=== PATIENT | male | born 1970 | race Caucasian/White ===

== ENCOUNTER 2023-03-16 21:16 | Emergency (ER) | payer SELFPAY ==
[~2023-03-16] VITALS: Ht 177.8 cm; Wt 114.8 kg
--- NOTE | 2023-03-16 21:45 | NUR ---
BIBWIFE FOR ANXIETY, "BEEN STRESSED OUT LATELY"
[2023-03-16] MEDS ORDERED: LORAZEPAM 1 MG TABLET PO ONE (22:30)
--- NOTE | 2023-03-16 22:36 | NUR ---
TOOL SETTER AT PT'S BEDSIDE
--- NOTE | 2023-03-16 22:37 | NUR ---
PRICING SPECIALIST AT PT'S BEDSIDE
--- NOTE | 2023-03-16 22:39 | NUR ---
22G IV STARTED ON LFA. BLOOD COLLECTED SENT TO LAB
[2023-03-16] MEDS ORDERED: LORAZEPAM 1 MG TABLET ONE (22:40)
[2023-03-16 23:01] LABS: BASOPHILS % (AUTO) 0.2 % (0.0-2.0); EOSINOPHILS % (AUTO) 1.3 % (0.0-6.0); HEMATOCRIT 46 % (39-51); HEMOGLOBIN 15.3 g/dL (13.5-17.5); LYMPHOCYTES # (AUTO) 1.3 K/uL (0.8-4.8); MEAN CORPUSCULAR HGB CONC 34 g/dl (31.0-36.0); MEAN CORPUSCULAR VOLUME 89 fL (80-96); MONOCYTES # (AUTO) 0.6 K/uL (0.1-1.30); MONOCYTES % (AUTO) 7.6 % (2.0-12.0); NEUTROPHILS # (AUTO) 6.2 K/uL (1.8-8.9); NEUTROPHILS % (AUTO) 74.9 % (43.0-81.0); PLATELET COUNT (AUTO) 256 K/uL (150-450); RED BLOOD CELL COUNT(AUTO) 5.14 MIL/uL (4.5-6.0); WHITE BLOOD COUNT (AUTO) 8.2 K/uL (4.3-11.0)
[2023-03-16 23:28] LABS: CALCIUM, SERUM 9.2 mg/dL (8.5-10.1); CARBON DIOXIDE 26 mmol/L (21-32); CHLORIDE 99 mmol/L (98-107); GLUCOSE 105 mg/dL (74-106); POTASSIUM 3.6 mmol/L (3.5-5.1); SODIUM SERUM 133 mmol/L (136-145); UREA NITROGEN, BLOOD 8 mg/dL (7-18)
[2023-03-17 00:01] VITALS: BP 161/95
--- NOTE | 2023-03-17 00:01 | NUR ---
Patient discharged to home in stable condition. Written and verbal after care instructions given. Patient verbalizes understanding of instruction.IV removed. Catheter intact and site benign. Pressure and 4x4 applied to site. No bleeding noted.
== END 2023-03-17 00:15 | disposition home or self-care (01) ==
LOC: ER 21:31
DX: F41.9 Anxiety disorder, unspecified (principal); I10 Essential (primary) hypertension
CPT/HCPCS: 36415; 71045-TC; 80048-TC; 84484-TC; 85025-TC